=== PATIENT | male | born 1990 | race Two or more races ===

== ENCOUNTER 2017-06-17 11:12 | Emergency (ER) | payer OTHER ==
[2017-06-17 11:31] VITALS: PULSE 47; TEMP 98.2; O2SAT 95
[2017-06-17] MEDS ORDERED: TDAP ADULT 0.5 ML INJ (BOOSTRIX) IM ONE (12:06)
--- NOTE | 2017-06-17 12:25 | EDPHY ---
H & P Stated Complaint: accidentally stabbed r calf with knife while fixing bike tire Source: Patient, Family Exam Limitations: No limitations - Personal History Current Tetanus/Diphtheria Vaccine: Yes - Medical/Surgical History Hx Asthma: No Hx Chronic Respiratory Disease: No Hx Diabetes: No Hx Cardiac Disease: No Hx Renal Disease: No Hx Cirrhosis: No Hx Alcoholism: No Hx HIV/AIDS: No Hx Splenectomy or Spleen Trauma: No Other PMH: r knee surg - Social History Smoking Status: Never smoked HPI/ROS: CHIEF COMPLAINT: Calf laceration HISTORY OF PRESENT ILLNESS: Patient was working on his bicycle with multi-tool when he accidentally stabbed himself in the right medial calf. This was a small knife. This happened less than 1 hour prior to arrival. There is moderate bleeding. No numbness, tingling or pain distally. No cyanosis or pallor distally. He has minimal pain at this time. No bleeding. This was unintentional. Tetanus is in question. He has no other injury. No other associated complaints or modifying factors. TIME OF INJURY: Less than 1 hour prior to arrival TETANUS STATUS: Uncertain REVIEW OF SYSTEMS: Ten systems reviewed and are negative unless otherwise noted in the HPI EXAMINATION General Appearance: Alert, no distress Head: normocephalic, atraumatic Cardiovascular: Pulses normal throughout. Symmetric radial, DP and PT pulses at 2+. Brisk cap refill. Excellent signs of perfusion the affected extremity Neurological: A&O, sensory symmetric, strength symmetric. Normal proprioception of the great toe. Skin: Warm and dry, no rash. 1 cm punctate laceration/puncture to the right medial calf. No bleeding. Neurovascular intact distal to the injury. Extremities: Minimally tender over the area of laceration. There is full flexion and extension of the ankle without complication. No deficit of the calf musculature. DIFFERENTIAL DIAGNOSES: Including but not limited to laceration, puncture, contusion, hematoma, arterial injury, venous injury MDM: 12:05 p.m. Superficial laceration/puncture to the right medial calf. There is no evidence of vascular injury. He has excellent perfusion with 2+ DP and 2+ PT pulses. I will irrigate close the wound. No bony injury. No significant trauma. 12:30 p.m. Laceration has been repaired without complication. He remains neurovascular intact. There is no evidence of injury to the tendinous structures, vascular structures or muscle belly. Wound care discussed. Return here in 7 days for suture removal. He is a competitive triathlete, and I recommend that he abstain from swimming for the duration of the sutures or at least at a minimum for 3 days and then keep the wound water tight while swimming for the duration of the sutures. PROCEDURE: Laceration repair Consent: Verbal Location: Right medial calf Length of repair: 1 cm Complexity: Simple Layer involvement: Single Anesthesia: Local, 1% lidocaine with epinephrine, 5 mL Irrigation: Extensive Debridement: None Procedure description: Following good anesthesia, the wound was copiously irrigated. Wound bed was explored and there is no foreign body noted. Wound borders were approximated well with good hemostasis. Tolerated well without complication. Suture/Staple material: 4-0 Prolene, 2 simple interrupted sutures Wound care: Routine as discussed Suture/Staple removal: 7-10 Days SUTURE STAPLE REMOVAL: 7-10 days ED Precautions: Worsening pain. Erythema, edema, cyanosis, pallor, paresthesia or anesthesia. SUPERVISION: This patient was independently evaluated without direct examination by the attending physician. Case was discussed with attending physician. (Kanu Ricketts ) Constitutional: Initial Vital Signs Temperature (C) 36.8 C 06/17/17 11:28 Heart Rate 47 L 06/17/17 11:28 Respiratory Rate 20 06/17/17 11:28 Blood Pressure 97/57 L 06/17/17 11:28 O2 Sat (%) 95 06/17/17 11:28 O2 Delivery Mode Room Air Allergies/Adverse Reactions: No Known Allergies Allergy (Unverified 06/17/17 11:28) Home Medications: Medication Instructions Recorded NK [No Known Home Meds] 06/17/17 Medical Decision Making ED Course/Re-evaluation: I did not see this patient while he was in the emergency department. However his care was discussed with the PA while the patient was in the department. I agree with treatment plan and management (Obed Cuevas) - Data Points Medications Given: Discontinued Medications Diphtheria/Tetanus/Acell Pertussis (Boostrix) 0.5 ml IM .ONCE ONE Stop: 06/17/17 12:07 Last Admin: 06/17/17 12:40 Dose: 0.5 ml Departure - Departure Disposition: Home, Routine, Self-Care Clinical Impression: Laceration of calf without complication Qualifiers: Encounter type: initial encounter Laterality: right Qualified Code(s): S81.811A - Laceration without foreign body, right lower leg, initial encounter Condition: Good Instructions: Care For Your Stitches (ED), Laceration (ED) Additional Instructions: 1. Daily wound care as discussed 2. Return here in 7-10 days for suture removal 3. Return here for signs of infection as discussed Referrals: NONE *PRIMARY CARE P,. [Primary Care Provider] - As per Instructions Senait Acosta MD [[facility] [place] - As per Instructions Print Language: Lao
[2017-06-17 12:45] VITALS: BP 114/62; RESP 16
== END 2017-06-17 12:50 | disposition home or self-care (01) ==
PROC: 0HQKXZZ Repair Right Lower Leg Skin, External Approach (ICD-10-PCS; principal; 2017-06-17)
DX: S81.811A Laceration without foreign body, right lower leg, initial encounter (principal); Z23 Encounter for immunization; W26.0XXA Contact with knife, initial encounter; Y99.8 Other external cause status; Y93.89 Activity, other specified